=== PATIENT | male | born 1965 | race Two or more races ===

== ENCOUNTER 2018-11-06 13:57 | Emergency (ER) | payer OTHER ==
[~2018-11-06] VITALS: Ht 185.4 cm; Wt 95.3 kg
--- NOTE | 2018-11-06 14:07 | NUR ---
BIBRA 89 C/O GEN. WEAKNESS AND BODY PAIN. STATES HE HAS HAD BACK PAIN SINCE FRIDAY, DENIES TRAUMA. ALSO HAVING RIGHT THIGH PAIN. PAIN IS SHARP AND 10/10. DENIES SOB, DIZZINESS. AT BEDSIDE. AWAITING MD RASHID.
--- NOTE | 2018-11-06 14:45 | NUR ---
DR LE AT BEDSIDE FOR EVAL.
[2018-11-06] MEDS ORDERED: MORPHINE SULFATE INJ 2 MG/ML DISP.SYRIN IV ONE (15:00)
[2018-11-06] MEDS ORDERED: ONDANSETRON HCL/PF 4 MG/2 ML VIAL IVP ONE (15:00)
[2018-11-06] MEDS ORDERED: IV NS 0.9% 500 ML BAG IV ONE (15:00)
[2018-11-06] MEDS ORDERED: MORPHINE SULFATE INJ 10 MG/ML DISP.SYRIN ONE (15:01)
[2018-11-06] MEDS ORDERED: ONDANSETRON HCL/PF 4 MG/2 ML VIAL ONE (15:01)
[2018-11-06 15:23] LABS: BASOPHILS # (AUTO) 0.1 /CMM (0.0-0.2); BASOPHILS % (AUTO) 0.4 % (0.0-2.0); EOSINOPHILS % (AUTO) 0.3 % (0.0-6.0); HEMATOCRIT 30 % (39-51); HEMOGLOBIN 9.7 g/dL (13.5-17.5); LYMPHOCYTES % (AUTO) 7.6 % (20.0-44.0); MEAN CORPUSCULAR HGB CONC 33 g/dl (31.0-36.0); MEAN CORPUSCULAR VOLUME 81 fL (80-96); MONOCYTES # (AUTO) 1.1 /CMM (0.1-1.30); MONOCYTES % (AUTO) 7.7 % (2.0-12.0); NEUTROPHILS # (AUTO) 11.5 /CMM (1.8-8.9); PLATELET COUNT (AUTO) 174 /CMM (150-450); RED BLOOD CELL COUNT(AUTO) 3.63 MIL/uL (4.5-6.0); WHITE BLOOD COUNT (AUTO) 13.7 K/uL (4.3-11.0)
--- NOTE | 2018-11-06 15:30 | NUR ---
URINE SENT TO STAT LAB
[2018-11-06 15:37] LABS: ALBUMIN 2.5 g/dL (3.4-5.0); BILIRUBIN,DIRECT 0.2 mg/dL (0.0-0.2); BILIRUBIN,TOTAL 0.5 mg/dL (0.2-1.0); POTASSIUM 4.6 mmol/L (3.5-5.1); TOTAL PROTEIN, SERUM 6.7 g/dL (6.4-8.2)
[2018-11-06 15:39] LABS: CALCIUM, SERUM 13.2 mg/dL (8.5-10.1)
[2018-11-06 16:02] LABS: APPEARANCE,URINE Clear (CLEAR); BILIRUBIN,URINE Negative (NEGATIVE); BLOOD, URINE Negative Ery/uL (NEGATIVE); COLOR,URINE Yellow (YELLOW); KETONES,URINE Negative (NEGATIVE); LEUKOCYTE ESTERASE ,URINE Negative (NEGATIVE); NITRITE, URINE Negative (NEGATIVE); PH,URINE 5.5 (5.0-8.0); PROTEIN,URINE Negative (NEGATIVE); UGLUCOSE Negative (NEGATIVE)
[2018-11-06 16:15] LABS: BACTERIA,URINE Few /HPF (None Seen); MUCUS,URINE Few /LPF (None Seen); RBC,URINE 0-2 /HPF (0-2); SQUAMOUS EPITHELIAL CELL,UR Few /HPF (None Seen); WBC,URINE 0-2 /HPF (0-3)
--- NOTE | 2018-11-06 16:15 | NUR ---
PT TAKEN TO CT VIA [facility]
[2018-11-06] MEDS ORDERED: IOHEXOL-300 100 ML VIAL IV ONE (16:19)
[2018-11-06 16:23] LABS: BAND % (MANUAL) 1 % (0.0-5.0); LYMPHOCYTES % (MANUAL) 9 % (16-48); MONOCYTES % (MANUAL) 6 % (0-11.0); MYELOCYTES % 1 % (0-0); NEUTROPHILS % (MANUAL) 83 (42-76)
[2018-11-06] MEDS ORDERED: IV NS 0.9% 1,000 ML BAG IV ONE (16:30)
--- NOTE | 2018-11-06 16:37 | NUR ---
PT LAYING COMFORTABLY IN BED, NO COMPLAINTS AT THIS TIME. VSS. WILL CONT TO MONITOR.
--- NOTE | 2018-11-06 17:10 | NUR ---
DR LE AT BEDSIDE
--- NOTE | 2018-11-06 17:36 | NUR ---
CALLED OFFICE OF DR PRECIADO, TAB CUTTER MD LR PAGED FOR THIS PT
--- NOTE | 2018-11-06 18:33 | NUR ---
NYASIA HUTCHINSON 89 TRIP#[id number]
--- NOTE | 2018-11-06 19:42 | NUR ---
Written and verbal after care instructions given. Patient verbalizes understanding of instruction. WAITING ON TRANSPORT
--- NOTE | 2018-11-06 19:59 | NUR ---
REPORT GIVEN TO [facility] EMT FOR TRANSPORT TO PT HOME. PT IV removed. Catheter intact and site benign. Pressure and 4x4 applied to site. No bleeding noted. READY FOR TRANSPORT.
[2018-11-06 20:15] VITALS: BP 132/76
== END 2018-11-06 19:59 | disposition home or self-care (01) ==
LOC: ER 14:03
DX: C22.0 Liver cell carcinoma (principal); C79.51 Secondary malignant neoplasm of bone; G89.29 Other chronic pain
CPT/HCPCS: 36415; 74177; 80048; 80076; 81001; 85025; 96374; 96375; 99284; J2270; J2405; J7030; J7040; Q9967; 81000-TC